=== PATIENT | male | born 1970 | race Caucasian/White ===

== ENCOUNTER → 2017-12-07 09:10 | Outpatient (CLI) | payer BC, SELFPAY ==
[2017-12-07 10:41] LABS: Alanine Aminotransferase 39 U/L (12-78); Albumin Level 4.4 gm/dL (3.4-5.0); Albumin/Globulin Ratio 1.6 (1.1-1.8); Alkaline Phosphatase 58 U/L (46-116); Anion Gap 11.8 mEq/L (5-15); Aspartate Amino Transferase 15 U/L (15-37); Bilirubin,Total 1.2 mg/dL (0.2-1.0); Blood Urea Nitrogen 13 mg/dL (7-18); Calcium 8.9 mg/dL (8.5-10.1); Carbon Dioxide 27 mmol/L (21.0-32.0); Chloride 106 mmol/L (98-107); Chol/HDL Ratio 5.2 (1-3.5); Cholesterol 188 mg/dL (140-200); Creatinine,Serum 1.05 mg/dL (0.70-1.30); Estimated Glomerular Filt Rate 76 ml/min (>60); GFR (African American) 92 ML/MIN (>60); Globulin 2.7 gm/dl (1.3-3.2); Glucose 102 mg/dL (74-106); HDL Cholesterol 36 mg/dL (27-67); LDL Cholesterol 129 mg/dL (0-130); Potassium 3.8 mmoL/L (3.5-5.1); Sodium 141 mmol/L (136-145); Total Protein,Serum 7.1 gm/dL (6.4-8.2); Triglycerides 114 mg/dL (30-200); VLDL Cholesterol 23 mg/dL (0-40)
== END ==
PROVIDERS: PCP Nurse Practitioner Family; Visit Provider Nurse Practitioner Family
DX: Z00.00 Encounter for general adult medical examination without abnormal findings (principal)
CPT/HCPCS: 36415; 80053; 80061

== ENCOUNTER → 2017-12-12 07:51 | Outpatient (CLI) | payer BC, SELFPAY ==
--- NOTE | 2017-12-12 08:03 | CT_ITS ---
CT abdomen pelvis wo con CLINICAL INDICATION: Umbilical pain, periumbilical pain, umbilical hernia ITS.REASON: UMBILICAL HERNIA ORDERING PHYSICIAN: Stephy Sinha PATIENT AGE: 47 years COMPARISON: None TECHNIQUE: Axial images obtained with sagittal and coronal reformats. PROCEDURE: Oral Contrast: Redicat IV Contrast: None . FINDINGS: No acute finding in the lower chest. The liver, gallbladder, spleen, adrenal glands, and pancreas have an unremarkable unenhanced CT appearance. No renal calculi, ureteral calculi, hydronephrosis, or suspicious renal mass. There is a small supra umbilical hernia which contains fat. The hernia orifice measures 2 cm in width. The fat within the hernia shows some infiltration. The hernia is just superior to the umbilicus and does NOT contain bowel. No evidence of appendicitis, diverticulitis, intestinal obstruction, or free air. The pelvis has an unremarkable appearance. No acute bony anomalies. IMPRESSION: Small supraumbilical hernia just superior to the umbilicus and midline containing peritoneal fat shows some increased density. The increased density of the fat is nonspecific and could be related to vascular congestion. Hernia strangulation or incarceration is also a consideration. Please correlate clinically.
== END ==
PROVIDERS: PCP Nurse Practitioner Family; Visit Provider Nurse Practitioner Family
DX: K42.9 Umbilical hernia without obstruction or gangrene (principal)
CPT/HCPCS: 74176

== ENCOUNTER 2017-12-29 09:08 | Emergency (ER) | payer BC, SELFPAY ==
[2017-12-29 09:35] VITALS: BP 144/89; PULSE 114; RESP 20; TEMP 36.9; O2SAT 99; BMI 33.4
[2017-12-29 09:49] LABS: UTC Influenza A Antigen Negative (Negative); UTC Influenza B Antigen Negative (Negative)
--- NOTE | 2017-12-29 09:59 | HMH.EDUTC ---
[facility] [place] Impression: Viral upper respiratory illness, Need for Tdap vaccination Disposition: Home, Self-Care Condition on Discharge: Good Instructions: DI for Viral Upper Respiratory Infection -- Adult, Tetanus, Diphtheria, Pertussis (Tdap) Vaccine Additional Instructions: * No sign of bacterial infection. Likely viral. Virus can take 7-14 days to run their course * Monitor Temp. Follow up if fever develops at this point * Encourage fluids, water, gatorade, powerade, pedialyte if /toddler/child * warm salt water gargles * warm fluids * sore throat lozenges * sleep elevated * humidifier/vaporizer * Avoid decongestants due to your history of significantly elevated blood pressure. Coricidin HBP products are the best with someone with your history if you need over the counter medication. Your vaccine today contained pertussis (whooping cough) as you requested but also know it contains the tetanus vaccine. You might want to make a mental note of this or document it somewhere Referrals: Stephy Sinha APRN [Primary Care Provider] - (IMMEDIATELY for new or worsening symptoms OR no noticeable improvement over the next 48-72 hours. 911 for difficulty breathing or swallowing. ) Time of Disposition: 10:05 Medical Decision Making Vital Signs: 12/29/17 09:35 Temperature 98.5 F Temperature Source Temporal Artery Scan Pulse Rate [Right Brachial] 114 H Respiratory Rate 20 Blood Pressure [Right Arm] 144/89 Blood Pressure Mean [Right Arm] 107 Blood Pressure Source [Right Arm] Automatic Cuff Blood Pressure Position [Right Arm] Sitting 02 Sat by Pulse Oximetry 99 Oxygen Delivery Method Room Air - Lab Data Lab results reviewed: Yes: I reviewed the patient's lab results. Lab Results 12/29/17 09:39: Influenza Type A Ag Negative, Influenza Type B Ag Negative Orders (Tests/Meds): ED MEDICATIONS Discontinued Medications Generic Name Dose Route Start Last Admin Trade Name Freq PRN Reason Stop Dose Admin Tetanus/Reduced Diphtheria/Acell Pertussis 0.5 ml 12/29/17 09:41 12/29/17 09:48 Adacel Tdap 0.5ml Syringe IM 12/29/17 09:42 0.5 ml .ONCE ONE Administration - Ray Inquiry Pt receiving controlled substance: No [facility] [place] - General Stated complaint: congestion Time Seen by Provider: 12/29/17 09:20 Mode of Arrival: Ambulatory Source of Information: Patient Limitations: No Limitations Description of Symptoms (Recalled from Triage Doc. by RN): C/O flu-like symptoms and requests TDAP vaccine HEENT Symptoms (Recalled from RN notes): No Resp Symptoms (Recalled from RN notes): Yes (Flu-like symptoms) Skin Symptoms (Recalled from RN notes): No MS Symptoms (Recalled from RN notes): No Functional Status (Recalled from RN notes): N/A - History of Present Illness Provider Complaint: c/o not feeling well last 2 days but starting to feel better today. Planned to go to work but talked him in to being seen. New grandbaby arriving within the next week and wants to rule out the flu but also needing the pertussis vaccine. Rhinorrhea throughout day and nasal congestion at night. Minimal cough. Scratchy throat. Like from drainage . Hasn't taken or tried anything for symptoms. Recently dx HTN w/ BP 200's/100's at PCP 3 wks ago. Started lisinopril and feeling much better. No known sick contacts. - Related Data Allergies Allergy/AdvReac Type Severity Reaction Status Date / Time No Known Allergies Allergy Verified 12/29/17 09:41 - Worker's Comp Is this a Worker's Comp case?: No [facility] History I have reviewed the patient's past medical history: Yes Medical History: Reports:: Hypertension Denies:: Cancer, Diabetes Mellitus Type 1, Diabetes Mellitus Type 2, MRSA Laterality Cases: Left: Arthroscopy Knee Amputation: No Fractures: No - *Social History Smoking Status: Never smoker Alcohol Intake: never Alcohol Intake Frequency:: holidays/special occasions only Substance Use Type
--- NOTE | 2017-12-29 10:03 | ED_ITS ---
[facility] [place] Clinical Impression: Viral upper respiratory illness, Need for Tdap vaccination Disposition: Home, Self-Care Condition on Discharge: Good Instructions: DI for Viral Upper Respiratory Infection -- Adult, Tetanus, Diphtheria, Pertussis (Tdap) Vaccine Additional Instructions: * No sign of bacterial infection. Likely viral. Virus can take 7-14 days to run their course * Monitor Temp. Follow up if fever develops at this point * Encourage fluids, water, gatorade, powerade, pedialyte if /toddler/ child * warm salt water gargles * warm fluids * sore throat lozenges * sleep elevated * humidifier/vaporizer * Avoid decongestants due to your history of significantly elevated blood pressure. Coricidin HBP products are the best with someone with your history if you need over the counter medication. Your vaccine today contained pertussis (whooping cough) as you requested but also know it contains the tetanus vaccine. You might want to make a mental note of this or document it somewhere Referrals: Stephy Sinha APRN [Primary Care Provider] - (IMMEDIATELY for new or worsening symptoms OR no noticeable improvement over the next 48-72 hours. 911 for difficulty breathing or swallowing. ) Time of Disposition: 10:05 Medical Decision Making Vital Signs: 12/29/17 09:35 Temperature 98.5 F Temperature Source Temporal Artery Scan Pulse Rate [Right Brachial] 114 H Respiratory Rate 20 Blood Pressure [Right Arm] 144/89 Blood Pressure Mean [Right Arm] 107 Blood Pressure Source [Right Arm] Automatic Cuff Blood Pressure Position [Right Arm] Sitting 02 Sat by Pulse Oximetry 99 Oxygen Delivery Method Room Air - Lab Data Lab results reviewed: Yes: I reviewed the patient's lab results. Lab Results 12/29/17 09:39: Influenza Type A Ag Negative, Influenza Type B Ag Negative Orders (Tests/Meds): ED MEDICATIONS Discontinued Medications Generic Name Dose Route Start Last Admin Trade Name Freq PRN Reason Stop Dose Admin Tetanus/Reduced Diphtheria/Acell Pertussis 0.5 ml 12/29/17 09:41 12/29/17 09: 48 Adacel Tdap 0.5ml Syringe IM 12/29/17 09:42 0.5 ml .ONCE ONE Administration - Ray Inquiry Pt receiving controlled substance: No [facility] [place] HPI - General Stated complaint: congestion Time Seen by Provider: 12/29/17 09:20 Mode of Arrival: Ambulatory Source of Information: Patient Limitations: No Limitations Description of Symptoms (Recalled from Triage Doc. by RN): C/O flu-like symptoms and requests TDAP vaccine HEENT Symptoms (Recalled from RN notes): No Resp Symptoms (Recalled from RN notes): Yes (Flu-like symptoms) Skin Symptoms (Recalled from RN notes): No MS Symptoms (Recalled from RN notes): No Functional Status (Recalled from RN notes): N/A - History of Present Illness Provider Complaint: c/o not feeling well last 2 days but starting to feel better today. Planned to go to work but talked him in to being seen. New grandbaby arriving within the next week and wants to rule out the flu but also needing the pertussis vaccine. Rhinorrhea throughout day and nasal congestion at night. Minimal cough. Scratchy throat. Like from drainage . Hasn't taken or tried anything for symptoms. Recently dx HTN w/ BP 200's/100's at PCP 3 wks ago. Started lisinopril and feeling much better. No known sick contacts. - Related Data Allergies Richi
== END 2017-12-29 10:07 | disposition home or self-care (01) ==
PROVIDERS: Emergency Provider Nurse Practitioner Family; PCP Nurse Practitioner Family
DX: J06.9 Acute upper respiratory infection, unspecified (principal); Z23 Encounter for immunization
CPT/HCPCS: 87804; 90471; 90715; 99201

== ENCOUNTER → 2019-08-19 08:38 | Outpatient (CLI) | payer BC, SELFPAY ==
--- NOTE | 2019-08-19 08:41 | XR_ITS ---
PROCEDURE: XR FOOT WT BEARING RT 3V CLINICAL INDICATION: pain COMPARISON: No exams were available for comparison FINDINGS: No fracture or dislocation. No lytic or blastic change. There is normal mineralization. The joint spaces are well-preserved. No significant degenerative/arthritic changes. No erosive changes evident. Other findings:There is minimal lateral angulation of the distal phalanx of the 2nd toe of questionable clinical significance IMPRESSION: No acute findings. Dictated by: Nathan Guerra MD 08/19/2019 14:49 Electronically signed by Nathan Guerra MD in [place] 08/19/2019 14:49
--- NOTE | 2019-08-19 08:41 | XR_ITS ---
PROCEDURE: XR FOOT WT BEARING LT 3V CLINICAL INDICATION: pain COMPARISON: No exams were available for comparison FINDINGS: No fracture or dislocation. No lytic or blastic change. There is normal mineralization. The joint spaces are well-preserved. No significant degenerative/arthritic changes. No erosive changes evident. Other findings:There is minimal lateral angulation of the distal phalanx of the 2nd toe. IMPRESSION: No acute findings. Dictated by: Nathan Guerra MD 08/19/2019 14:49 Electronically signed by Nathan Guerra MD in [place] 08/19/2019 14:51
== END ==
PROVIDERS: PCP Nurse Practitioner Family; Visit Provider Podiatrist
DX: M72.2 Plantar fascial fibromatosis (principal)
CPT/HCPCS: 73630

== ENCOUNTER 2020-12-16 09:52 | Emergency (ER) | payer BC, SELFPAY ==
[2020-12-16 09:53] VITALS: BP 149/91; PULSE 101; RESP 19; TEMP 37.1; O2SAT 98; BMI 33.7
--- NOTE | 2020-12-16 10:14 | HMH.EDUTC ---
[facility] [place] Disposition Clinical Impression: Viral syndrome, Exposure to COVID-19 virus Acute bronchitis Qualifiers: Bronchitis organism: unspecified organism Qualified Code(s): J20.9 - Acute bronchitis, unspecified Disposition: Home, Self-Care Condition on Discharge: Good Instructions: DI for COVID-19 (Suspected or Confirmed ), Preventing the Spread of Coronavirus Discharge Instructions Additional Instructions: Drink plenty of fluids. Take tylenol for pain or fever. Return if you begin to have difficulty breathing. Follow up with your regular doctor. GO TO THE ER FOR ANY WORSENING SYMPTOMS Prescriptions: Azithromycin [Z-Abimael 250mg Tab*] 250 mg PO UD DOSE PK #6 tab Transmission Status: Received by [id number] Referrals: Stephy Sinha APRN [Primary Care Provider] - Time of Disposition: 10:24 Medical Decision Making - Medical Records Medical records reviewed: No: I reviewed the patient's medical records. - Ray Inquiry Pt receiving controlled substance: No Vital Signs: 12/16/20 09:53 12/16/20 10:28 Temperature 98.7 F 98.7 F Temperature Source Oral Oral Pulse Rate 101 H Pulse Rate [Right] 101 H Respiratory Rate 19 19 Blood Pressure 149/91 H Blood Pressure [Right Arm] 149/91 H Blood Pressure Mean [Right Arm] 110 02 Sat by Pulse Oximetry 98 Oxygen Delivery Method Room Air Orders (Tests/Meds): ORDERS Category Date Time Status Covid-19 Nasal PCR Sendout P&C Stat Lab 12/16/20 10:00 Received [facility] [place] HPI - General Stated complaint: Covid test, symptoms Time Seen by Provider: 12/16/20 10:14 Mode of Arrival: Ambulatory Source of Information: Patient Description of Symptoms (Recalled from Triage Doc. by RN): pt request COVID test pt c/o chills,dizzy x 2days HEENT Symptoms (Recalled from RN notes): Yes Resp Symptoms (Recalled from RN notes): No Skin Symptoms (Recalled from RN notes): No MS Symptoms (Recalled from RN notes): No Functional Status (Recalled from RN notes): wnl - History of Present Illness Provider Complaint: He states that for the past 3 days he has had chilling, head ache, body aches, and a worsening productive cough. He denies that he has any shortness of breath or chest pain. - Related Data Home Medications Medication Instructions Recorded Confirmed lisinopril 30 mg tablet PO #90 tab 06/24/19 01/27/20 atorvastatin 20 mg tablet 20 mg PO tab 12/02/19 01/27/20 cetirizine 10 mg tablet mg PO 12/02/19 01/27/20 Previous Rx's Medication Instructions Recorded naproxen 500 mg tablet 500 mg PO BID #60 tab 12/02/19 Azithromycin [Z-Abimael 250mg Tab*] 250 mg PO UD DOSE PK #6 tab 12/16/20 Allergies Allergy/AdvReac Type Severity Reaction Status Date / Time No Known Allergies Allergy Verified 12/16/20 10:08 - Worker's Comp Is this a Worker's Comp case?: No Is this an [facility] Worker's Comp?: No Is this a [place] Worker's Comp?: No H History - Hepatitis A Screen Drug use history?: No High risk sexual behaviors?: No History of sexually transmitted infection?: No Currently employed?: No Childcare worker?: No Do you have indoor plumbing?: Yes Do you have electricity?: Yes Attestation statement:: This patient has been screened for Hepatitis A risk factors. I have reviewed the patient's past medical history: Yes Medical History: Reports:: Hiatal Hernia, Hypertension Denies:: Cancer, Diabetes Mellitus Type 1, Diabetes Mellitus Type 2, MRSA Laterality Cases: Left: Arthroscopy Knee Other Surgeries: Yes: No Previous Surgery Amputation: No Fractures: No - Social History Smoking Status: Light tobacco smoker Alcohol Intake: current Alcohol Intake Frequency:: holidays/special occasions only Substance Use Type: denies use Occupational Status: employed Housing: house Household Members: family Family Hx:: Hypertension, Diabetes ROS Obtained: Yes All systems reviewed & no additional complaints - Constitutional Constitutional: Reports system re
[2020-12-16 10:28] VITALS: BP 149/91; PULSE 101; RESP 19; TEMP 37.1; O2SAT 98
[2020-12-17 10:07] LABS: Covid-19 Nasal PCR Sendout P&C POSITIVE
--- NOTE | 2020-12-17 10:19 | PC.NURSE ---
patient informed of positive covid results
== END 2020-12-16 10:29 | disposition home or self-care (01) ==
PROVIDERS: Emergency Provider Nurse Practitioner Family; PCP Nurse Practitioner Family
DX: U07.1 COVID-19 (principal); B34.9 Viral infection, unspecified; J20.9 Acute bronchitis, unspecified; I10 Essential (primary) hypertension; F17.210 Nicotine dependence, cigarettes, uncomplicated
CPT/HCPCS: 99202; G0463; U0004

== ENCOUNTER 2021-08-01 11:49 | Emergency (ER) | payer BC, SELFPAY ==
[2021-08-01 12:00] VITALS: BP 157/91; PULSE 89; RESP 18; TEMP 37.1; O2SAT 99; BMI 33.7
[2021-08-01 12:26] VITALS: BP 157/91; PULSE 89; RESP 18; TEMP 37.1; O2SAT 99
--- NOTE | 2021-08-01 12:27 | HMH.EDUTC ---
[facility] [place] [facility] [place] Clinical Impression: Exposure to COVID-19 virus Disposition: Home, Self-Care Condition on Discharge: Good Instructions: COVID-19 Viral Test Additional Instructions: covid swab was sent to lab, call later today for results. self isolate until test results are known to be negative Referrals: Stephy Sinha APRN [Primary Care Provider] - Time of Disposition: 12:29 Medical Decision Making - Ray Inquiry Pt receiving controlled substance: No Vital Signs: 08/01/21 12:00 08/01/21 12:26 Temperature 98.8 F 98.8 F Temperature Source Oral Pulse Rate 89 Pulse Rate [Right Brachial] 89 Respiratory Rate 18 18 Blood Pressure 157/91 H Blood Pressure [Right Arm] 157/91 H Blood Pressure Mean [Right Arm] 113 Blood Pressure Source [Right Arm] Automatic Cuff Blood Pressure Position [Right Arm] Sitting 02 Sat by Pulse Oximetry 99 Oxygen Delivery Method Room Air Orders (Tests/Meds): ORDERS Category Date Time Status Covid-19 Nasal PCR ([facility]) Routine Lab 08/01/21 12:10 Received [facility] [place] [facility] [place]PI - General Chief complaint: Urgent [facility] Stated complaint: covid test Time Seen by Provider: 08/01/21 12:27 Mode of Arrival: Ambulatory Source of Information: Patient Limitations: No Limitations Description of Symptoms (Recalled from Triage Doc. by RN): COVID TEST D/T EXPOSURE. DENIES SYMPTOMS HEENT Symptoms (Recalled from RN notes): No Resp Symptoms (Recalled from RN notes): No Skin Symptoms (Recalled from RN notes): No MS Symptoms (Recalled from RN notes): No Functional Status (Recalled from RN notes): WNL - History of Present Illness Provider Complaint: 51 yr old male presents for covid test, has been exposed but no syptoms - Related Data Home Medications Medication Instructions Recorded Confirmed lisinopril 30 mg tablet PO #90 tab 06/24/19 01/27/20 atorvastatin 20 mg tablet 20 mg PO tab 12/02/19 01/27/20 cetirizine 10 mg tablet mg PO 12/02/19 01/27/20 Previous Rx's Medication Instructions Recorded naproxen 500 mg tablet 500 mg PO BID #60 tab 12/02/19 Azithromycin [Z-Abimael 250mg Tab*] 250 mg PO UD DOSE PK #6 tab 12/16/20 Allergies Allergy/AdvReac Type Severity Reaction Status Date / Time No Known Allergies Allergy Verified 12/16/20 10:08 - Worker's Comp Is this a Worker's Comp case?: No [facility] History - Hepatitis A Screen Drug use history?: No High risk sexual behaviors?: No History of sexually transmitted infection?: No Currently employed?: No Childcare worker?: No Do you have indoor plumbing?: Yes Do you have electricity?: Yes Attestation statement:: This patient has been screened for Hepatitis A risk factors. I have reviewed the patient's past medical history: Yes Medical History: Reports:: Hiatal Hernia, Hypertension Denies:: Cancer, Diabetes Mellitus Type 1, Diabetes Mellitus Type 2, MRSA Laterality Cases: Left: Arthroscopy Knee Other Surgeries: Yes: No Previous Surgery Amputation: No Fractures: No - Social History Smoking Status: Light tobacco smoker Alcohol Intake: current Alcohol Intake Frequency:: holidays/special occasions only Substance Use Type: denies use Occupational Status: employed Housing: house Household Members: family Family Hx:: Hypertension, Diabetes ROS Obtained: Yes Systems reviewed as appropriate & no additional complaints - Constitutional Constitutional: Reports system reviewed and no additional complaints, except as docu, Denies chills - Eyes Eyes: Reports system reviewed and no additional complaints, except as docu, Denies blurry vision - ENT Ears, Nose, Mouth, and Throat: Reports system reviewed and no additional complaints, except as docu, Denies sore throat - Cardiovascular Cardiovascular: Reports system reviewed and no additional complaints, except as docu, Denies chest pain - Respiratory Respiratory: Reports system reviewed and no additional complaints, except as docu, Denies shortness of breath - G
== END 2021-08-01 12:34 | disposition home or self-care (01) ==
PROVIDERS: Emergency Provider Nurse Practitioner Family; PCP Nurse Practitioner Family
DX: Z20.822 Contact with and (suspected) exposure to COVID-19 (principal)
CPT/HCPCS: 99202; G0463; U0003

== ENCOUNTER → 2021-11-21 12:32 | Outpatient (CLI) | payer BC, SELFPAY | PROVIDERS: PCP Nurse Practitioner Family; Visit Provider Nurse Practitioner Family | DX: Z20.822 Contact with and (suspected) exposure to COVID-19 (principal) | CPT/HCPCS: C9803; U0003; U0005 ==

== ENCOUNTER → 2022-08-23 08:50 | Outpatient (CLI) | payer BC, SELFPAY ==
--- NOTE | 2022-08-23 08:59 | ECG_ITS ---
APPROVED REPORT Exam: Resting ECG HR:85 bpm ECG Measurements Heart Rate 85 AXES MA 177 P 26 QRSd 94 QRS 70 QT 366 T 11 QTc 408 Conclusion SINUS RHYTHM WITH SINUS ARRHYTHMIA LOW QRS VOLTAGE IN PRECORDIAL LEADS [QRS DEFLECTION < 1.0 mV IN CHEST LEADS] BORDERLINE ECG UNCONFIRMED REPORT Electronically signed by : Elie Vail MD 08/25/2022 16:00:35
[2022-08-23 09:05] LABS: Microscopic, Urine URINE MICROSCOPIC (MICROSCOPIC)
[2022-08-23 09:34] LABS: Appearance,Urine CLEAR (Clear); Basophils # 0.1 K/mm3 (0-0.2); Basophils % 2.1 % (0.1-2.0); Bilirubin,Urine Negative (Negative); Blood, Urine Negative (Negative); Color,Urine YELLOW (Yellow); Eosinophils # 0.2 K/mm3 (0.0-0.4); Eosinophils % 3.5 % (0.1-12.0); Glucose,Urine (UA) Negative (Negative); Hematocrit 39.5 % (42.0-52.0); Hemoglobin 15.3 g/dL (14.1-18.0); Ketones,Urine Negative (Negative); Leukocyte Esterase,Urine Negative (Negative); Lymphocytes # 1.6 K/mm3 (0.7-4.5); Mean Corpuscular HGB Conc 38.7 g/dL (31.8-35.4); Mean Corpuscular Hemoglobin 36.6 pg (27.0-31.2); Mean Corpuscular Volume 94.5 fl (80-94); Mean Platelet Volume 8.4 fl (7.4-10.4); Monocytes # 0.5 K/mm3 (0.1-1.0); Monocytes % 8.7 % (1.7-9.3); Neutrophils # 3.5 K/mm3 (1.8-7.8); Neutrophils % 58.7 % (37.0-80.0); Nitrate,Urine Negative (Negative); PH,Urine 5.5 (5.0-8.5); Platelet Count 175 K/mm3 (142-424); Protein,Urine Negative (Negative); Red Blood Count 4.18 M/mm3 (4.60-6.20); Red Cell Distribution Width 13.5 % (11.5-17.5); Specific Gravity, Urine >= 1.030 (1.005-1.030); Urobilinogen,Urine 0.2 EU/dl (0.2)
[2022-08-23 09:50] LABS: Bacteria,Urine Trace /lpf; Chloride 103 mmol/L (98-107); Potassium 4.2 mmoL/L (3.5-5.1); Sodium 142 mmol/L (136-145); Squamous Epithelial Cell,Urine Occasional #/hpf (0-5); WBC,Urine Occasional #/hpf (0-3)
[2022-08-23 09:53] LABS: Anion Gap 17.2 mEq/L (5-15); Blood Urea Nitrogen 16 mg/dl (9-20); Carbon Dioxide 26 mmol/L (22.0-30.0); Estimated Glomerular Filt Rate 70 ml/min (>60); GFR (African American) 85 ML/MIN (>60); Glucose 104 mg/dl (74-100)
== END ==
PROVIDERS: PCP Nurse Practitioner Family; Visit Provider Surgery
DX: Z01.812 Encounter for preprocedural laboratory examination (principal); Z20.822 Contact with and (suspected) exposure to COVID-19; K46.9 Unspecified abdominal hernia without obstruction or gangrene
CPT/HCPCS: 36415; 80048; 81001; 85025; 93005; C9803; U0003; U0005

== ENCOUNTER 2022-08-25 06:05 | Day surgery (SDC) | payer BC, SELFPAY ==
[2022-08-23 14:48] VITALS: BMI 33.2
[2022-08-25] VITALS (10 sets, daily range): BP systolic 109–153; BP diastolic 63–83; PULSE 61–87; RESP 16–20; TEMP 36.1–43; O2SAT 93–100
--- NOTE | 2022-08-25 07:31 | P.PN_ITS ---
PFSH PFS Medical History Allergy Arthritis History of gastroesophageal reflux (GERD) Hyperlipidemia Hypertension Vertigo Surgical History S/P left knee arthroscopy Family History Other Family history of acute congestive heart failure Family history of cancer Family history of diabetes mellitus type II Family history of hypertension Social History Smoking Status: Current every day smoker tobacco type: smokeless tobacco alcohol intake: current counseling provided: provider counseling substance use type: denies use current occupational status: employed Travel in the last 8 weeks: Inside the [place] household members: family housing: house [facility] Anesthesia Checklist Patient Identification Patient Identification: Arm Band Structural Data Admitted From: Home Planned Operative Procedure/s: Open Umbilical Hernia Repair Consent for Planned Operative Procedure(s) Verified: Yes Verified Documents: Surgical Consent and History and Physical NPO Status Verified Time NPO: 00:00 Additional verifications Anesthesia Reactions: No Hx Blood Transfusions: No Blood Transfusion Reaction: No Airway Assessment C-Spine Mobility Assessed: Yes TMJ Mobility Assessed: Yes Dentition: Good Dentition Neurological Assessment Level of Consciousness: Awake and Alert Anesthesia Plan Anesthesia Risk discussed: Yes Anesthesia Plan: Verified ASA Class: II Anesthesia Type: General
--- NOTE | 2022-08-25 08:15 | EXP.OP.NOTE ---
Date of procedure: 08/25/22 Pre-op Diagnosis:: Umbilical hernia with incarcerated preperitoneal fat/omentum Post-op Diagnosis:: Same Procedure performed:: Open umbilical hernia repair with 4.3 cm Ventralex mesh Surgeon:: Zack Liz MD LOGISTICS ENGINEERING MANAGER:: Ameya Timmons Anesthesia: GETA Estimated blood loss (mL): 10 Operative findings:: 1.5 cm defect 4.3 cm Ventralex mesh secured with 0 Ethibond Primary repair overlying Ventralex mesh completed with 0 Ethibond Operative note:: After informed consent was obtained the patient was taken to the operating room and placed in the supine position. General anesthesia was induced and his abdomen was prepped and draped in a sterile fashion. After infiltration local anesthetic a curvilinear infraumbilical incision was made. The subcutaneous tissue was dissected with a combination of sharp dissection, blunt dissection, and electrocautery. The umbilical stump was carefully elevated. A 1.5 cm defect was encountered with incarcerated preperitoneal fat and omentum noted. The incarcerated contents were maneuvered back into the abdominal cavity as the surrounding tissue was dissected with Metzenbaum scissors and electrocautery. A 4.3 Ventralex mesh was then secured in the defect utilizing 0 Ethibond. A primary repair overlying the mesh was then completed with 0 Ethibond. The umbilical stump was reapproximated with interrupted Vicryl. Skin was then closed with interrupted 4-0 Monocryl. Dressings were applied and the patient was transferred to recovery in stable condition after extubation. Condition: stable Disposition: PACU Specimens:: None Complications:: No immediate
--- NOTE | 2022-08-25 08:20 | P.PNANES_ITS ---
[facility] Anesthesia Record Part I Anesthesia Record I Intake, IV Amount: 1,100 Estimated blood loss (mL): 5 Urine output (mL): 0 Blood Products used (#): none Blood Pressure: 112/68 SaO2: 93 Pulse Rate: 87 Respiratory Rate: 16 Temperature: 98.3 F Patient is:: Drowsy and Stable Stable to PACU at:: 08:20
--- NOTE | 2022-08-25 08:50 | PC.NURSE ---
0848-detailed report called to MAGDIEL Jimenez [id number]-pt transported to post op via stretcher w/lita rails up and left in care of MAGDIEL Jimenez with bed locked in lowest position, vss, pt stable
--- NOTE | 2022-08-26 14:38 | P.PNANES_ITS ---
[facility] Anesthesia Record Part II Anesthesia Record Part II Discharge Time: 08:50 Destination: Surgical Day Care (OP Surgery) PACU nurse assessment reviewed?: Yes Patient Condition:: Good Anesthesia Complications:: None Swallowing reflex intact?: Yes Cyanosis?: No Blood Pressure: 109/77 Pulse Rate: 63 Temperature: 97.4 F Mental Status: Alert & Oriented Pain level:: 0 Nausea and/or vomitting:: None Intake, IV Amount: 0
[2022-08-26 14:39] VITALS: BP 109/77; PULSE 63; TEMP 36.3
== END 2022-08-25 09:21 | disposition home or self-care (01) ==
PROVIDERS: PCP Nurse Practitioner Family; Visit Provider Surgery
PROC: (CPT 49587; principal; 2022-08-25 07:30)
DX: K42.0 Umbilical hernia with obstruction, without gangrene (principal); F17.220 Nicotine dependence, chewing tobacco, uncomplicated; Z79.899 Other long term (current) drug therapy
CPT/HCPCS: 49587; 96374; C1781; J0330; J2405; J2710

== ENCOUNTER 2024-08-19 12:26 | Day surgery (SDC) | payer BC, SELFPAY ==
[2024-08-13 15:19] VITALS: BMI 33.0
[2024-08-19] MEDS: LACTATED RINGERS 1000ML 1,000 ML 100 ML IV (12:36)
[2024-08-19 12:41] VITALS: BP 139/84; PULSE 80; RESP 18; TEMP 36.1; O2SAT 98
--- NOTE | 2024-08-19 13:04 | EXP.ANES.CKL ---
[facility] Disclaimer: The information contained in this section may have been updated after the patient was seen, as this information can be updated by other users. Medical History Allergy Arthritis History of gastroesophageal reflux (GERD) Hyperlipidemia Hypertension Vertigo Surgical History H/O umbilical hernia repair S/P left knee arthroscopy Family History Other Family history of acute congestive heart failure Family history of cancer Family history of diabetes mellitus type II Family history of hypertension Social History Smoking Status: Former smoker tobacco type: smokeless tobacco alcohol intake: current alcohol intake frequency: holidays/special occasions only counseling provided: provider counseling substance use type: denies use current occupational status: employed Travel in the last 8 weeks: Inside the [facility] adopted: No caregiver/support person: No foster care: No household members: family housing: house marital status: number of children: 2 number of grandchildren: 4 service: No senior care: No [facility] Anesthesia Checklist Patient Identification Patient Identification: Arm Band Structural Data Admitted From: Home Planned Operative Procedure/s: Colonoscopy Consent for Planned Operative Procedure(s) Verified: Yes Verified Documents: Surgical Consent and History and Physical NPO Status Verified Time NPO: 00:00 Additional verifications Anesthesia Reactions: No Hx Blood Transfusions: No Blood Transfusion Reaction: No Airway Assessment Mallampati Score:: Class II C-Spine Mobility Assessed: Yes TMJ Mobility Assessed: Yes Dentition: Good Dentition Neurological Assessment Level of Consciousness: Awake, Alert and Appropriate Anesthesia Plan Anesthesia Risk discussed: Yes Anesthesia Plan: Verified ASA Class: II Anesthesia Type: MAC
[2024-08-19 14:03] VITALS: O2SAT 98
--- NOTE | 2024-08-19 14:06 | EXP.HP ---
History of Present Illness *Admission Date: 08/19/24 *Reason for visit:: Screening *History of present illness: 54-year-old gentleman who is here for initial screening colonoscopy. He does get some frequent hemorrhoidal bleeding. [facility] Disclaimer: The information contained in this section may have been updated after the patient was seen, as this information can be updated by other users. Medical History Allergy Arthritis History of gastroesophageal reflux (GERD) Hyperlipidemia Hypertension Vertigo Surgical History H/O umbilical hernia repair S/P left knee arthroscopy Family History Other Family history of acute congestive heart failure Family history of cancer Family history of diabetes mellitus type II Family history of hypertension Social History Smoking Status: Former smoker tobacco type: smokeless tobacco alcohol intake: current alcohol intake frequency: holidays/special occasions only counseling provided: provider counseling substance use type: denies use current occupational status: employed Travel in the last 8 weeks: Inside the [place] adopted: No caregiver/support person: No foster care: No household members: family housing: house marital status: number of children: 2 number of grandchildren: 4 service: No snf: No Review of Systems Review of Systems Review of systems (narrative): Negative *Cardiovascular Comments: Negative *Gastrointestinal Comments: Negative *Genitourinary Comments: Negative *Musculoskeletal Comments: Negative *Neurologic Comments: Negative Meds Home Medications and Allergies Home Medications ?Medication ?Instructions ?Recorded ?Confirmed ?Type lisinopril 30 mg tablet 40 mg PO DAILY High blood pressure 06/24/19 08/19/24 History #90 tabs fluticasone propionate 50 1 spray intranasal DAILY Allergy 07/13/22 08/19/24 History mcg/actuation nasal symptoms spray,suspension rosuvastatin 10 mg tablet 10 mg PO DAILY Cholesterol 07/13/22 08/19/24 History amlodipine 10 mg tablet 10 mg PO DAILY 08/13/24 08/19/24 History New Prescriptions to Start Prescriptions: Allergies Allergy/AdvReac Type Severity Reaction Status Date / Time No Known Allergies Allergy Verified 09/07/22 09:16 Exam Data for Last 24 hours Vital signs and Labs for Last 24 Hours: Temp Pulse Resp BP Pulse Ox O2 Del Method 97 F L 80 18 139/84 98 Room Air 08/19/24 12:41 08/19/24 12:41 08/19/24 12:41 08/19/24 12:41 08/19/24 12:41 08/19/24 12:41 *Routine HEENT Exam Head: Present normocephalic Eye: Present EOMI and PERRL ENT: Present mucous membranes moist *Routine Neck Exam Neck: Present supple *Routine Respiratory Exam Respiratory: Present CTA bilaterally *Routine Cardiovascular Exam Cardiovascular: Present RRR *Routine Abdominal Exam Abdominal: Present soft and normoactive bowel sounds; Absent tenderness *Routine Rectal Exam Rectal:: deferred *Routine Genitalia Exam Genitalia:: deferred *Routine Extremities Exam Extremities: Absent cyanosis, clubbing or edema *Routine Skin Exam Skin: Present warm; Absent rash *Routine Neurological Exam Neurological: Present alert and oriented X3 Assessment and Plan *Assessment and plan (1) Screening for colon cancer: Status: Acute Category: Medical Code(s): Z12.11 - Encounter for screening for malignant neoplasm of colon Plan Proceed with screening colonoscopy
--- NOTE | 2024-08-19 14:29 | P.PCN_ITS ---
[facility] Procedure Note Date: 08/19/24 Time: 14:29 Procedure Note:: Colonoscopy Procedure Report: Colonoscopy with cold snare polypectomy and hemorrhoid band ligation Endoscopist: Tashi Rendon II, MD Referring physician: MERY Milan Date of Procedure: August 19, 2024 Equipment: Olympus 190 variable stiffness pediatric colonoscope Sedation: MAC sedation Indication: Mr. Feliciano is a 54-year-old gentleman who is here for initial screening colonoscopy. The patient does report fairly frequent hemorrhoidal bleeding and hemorrhoidal prolapse. This is not unexplained. The patient reports no abdominal pain, weight loss, change in his bowel habits or family history of colon cancer. Procedure: Prior to the procedure, a history and physical exam was performed, and patient's medications and allergies were reviewed. The risks, benefits and alternatives of the sedation and procedure were discussed with the patient. All questions were answered and informed consent was obtained. The patient was brought to the procedure room. Patient identification and proposed procedure were verified by the physician and the nurse. The patient was placed in a left lateral decubitus position and the scope was passed under direct vision. Throughout the procedure, the patient's blood pressure, pulse, and oxygen saturations were monitored continuously. The colonoscopy was accomplished without difficulty. The patient tolerated the procedure well. Findings: On digital rectal examination there was normal rectal tone. There were no external hemorrhoids. There were prolapsing internal hemorrhoids. The prostate was 2+, smooth, soft, symmetric without nodules. The colonoscope was introduced through the anal canal to the rectum and advanced to the cecum. The ileocecal valve and appendiceal orifice were identified. The scope was advanced a short distance into the ileum which appeared grossly normal. The scope was then withdrawn into the colon. There were 4 colon polyps identified in the transverse x 2 (4 and 5 mm), sigmoid x 1 (5 mm) and rectum x 1 (4 mm). These ranged in size from 4 to 5 mm and were all removed via cold snare polypectomy. The remaining cecum, ascending, transverse, descending, sigmoid and rectum were grossly normal. There were a few diverticuli in the distal descending and sigmoid colon. There were no other mucosal abnormalities identified. Upon retroflexion within the rectum there were grade 2-3 internal hemorrhoids.The these were banded using 3 bands with excellent ligation effect. The preparation was excellent throughout with Commiskey Preparation Score of 9. The cecal time was 12 minutes. Impression: 1. Diminutive colonic polyps x 4 2. Mild left-sided diverticulosis 3. Grade 2-3 internal hemorrhoids status post band ligation x 3 Plan: I will follow up the polyp pathology and recommend repeat colonoscopy again in 5 years based upon the polyp histology. I would encourage fiber supplementation on a long-term daily maintenance basis.
[2024-08-19 14:41] VITALS: BP 99/68; PULSE 85; RESP 18; TEMP 36.7; O2SAT 94
[2024-08-19 14:56] VITALS: BP 107/72; PULSE 76; RESP 18; O2SAT 95
[2024-08-19 15:01] VITALS: BP 116/49; PULSE 55; RESP 18; O2SAT 94
[2024-08-19 15:03] VITALS: BP 116/49; PULSE 55; RESP 18; O2SAT 94
== END 2024-08-19 15:18 | disposition home or self-care (01) ==
PROVIDERS: PCP Nurse Practitioner Family; Visit Provider Internal Medicine Gastroenterology
PROC: (CPT 45385; principal; 2024-08-19 13:30)
DX: Z12.11 Encounter for screening for malignant neoplasm of colon (principal); D12.5 Benign neoplasm of sigmoid colon; D12.3 Benign neoplasm of transverse colon; K62.1 Rectal polyp; K57.30 Diverticulosis of large intestine without perforation or abscess without bleeding; K64.2 Third degree hemorrhoids
CPT/HCPCS: 45385; 46221; 99221; C1889; J2704; J7120

== ENCOUNTER 2024-12-25 09:19 | Outpatient (CLI) | payer BC, SELFPAY ==
--- NOTE | 2024-12-25 09:25 | XR_ITS ---
FINAL REPORT CLINICAL HISTORY: ACUTE PAIN RT KNEE COMPARISON: None FINDINGS: RIGHT KNEE Three views demonstrate no acute fracture or dislocation. The medial and lateral joint spaces are preserved. No acute soft tissue abnormality is seen. IMPRESSION: No acute bony abnormality. Reviewed, Interpreted and Dictated by Joshua Yusuf MD Transcribed by Valerie Stephens Authenticated and [facility]
== END 2024-12-25 23:59 | disposition home or self-care (01) ==
LOC: RAD 09:21
PROVIDERS: PCP Nurse Practitioner Family; Visit Provider Internal Medicine Adolescent Medicine
DX: M25.561 Pain in right knee (principal)
CPT/HCPCS: 73562

== ENCOUNTER 2025-02-05 07:25 | Outpatient (CLI) | payer BC, SELFPAY ==
--- NOTE | 2025-02-05 07:27 | MR_ITS ---
FINAL REPORT CLINICAL HISTORY: PAIN IN RIGHT KNEE. MEDIAL SIDED PAIN. FINDINGS: Multi planar MR imaging was performed of the right knee. The anterior and posterior cruciate ligaments are intact. The quadriceps and patellar tendons are intact. There is a full-thickness tear of the posterior horn of the medial meniscus extending to the meniscal margin best seen on images 1920 of series 4 and coronal images 19 and 20 of series 8. The medial and lateral collateral ligaments appear intact. The medial and lateral retinacula appear intact. There is no evidence of bone marrow edema or osteochondral defect. No evidence of soft tissue inflammatory reaction. IMPRESSION: Full-thickness tear of the posterior horn of the medial meniscus. Reviewed, Interpreted and Dictated by Joshua Yusuf MD Transcribed by Jailene Estrada Authenticated and [facility]
--- NOTE | 2025-02-05 07:32 | XR_ITS ---
FINAL REPORT CLINICAL HISTORY: R/O METAL FOREIGN BODY FOR MRI. PRIOR HX METAL IN BOTH EYES. COMPARISON: None FINDINGS: ORBITS Look up and look down views were obtained. No fracture is identified. There is mild mucoperiosteal thickening in the right maxillary consistent with chronic sinusitis. No foreign body is identified. Dental implants are noted. IMPRESSION: No evidence of foreign body. Reviewed, Interpreted and Dictated by Joshua Yusuf MD Transcribed by Valerie Stephens Authenticated and . [facility]
== END 2025-02-05 23:59 | disposition home or self-care (01) ==
LOC: RAD 07:26
PROVIDERS: PCP Nurse Practitioner Family; Visit Provider Nurse Practitioner Family
DX: M25.561 Pain in right knee (principal); G89.29 Other chronic pain
CPT/HCPCS: 70200; 73721

== ENCOUNTER 2025-03-12 07:46 | Outpatient (CLI) | payer BC, SELFPAY ==
--- NOTE | 2025-03-12 07:49 | US_ITS ---
FINAL REPORT TECHNIQUE: Sonographic images of the right upper quadrant were obtained. CLINICAL HISTORY: ELEVATED LIVER ENZYMES COMPARISON: None FINDINGS: PANCREAS: The head of the pancreas is unremarkable. The tail is obscured. LIVER: Homogeneous. No focal hepatic lesion. The portal vein is patent with normal directional flow. GALLBLADDER: No gallstones. No gallbladder wall thickening or pericholecystic fluid. COMMON DUCT: 4 mm. Normal for age. RIGHT KIDNEY: The right kidney measures 12.6 cm. There is no hydronephrosis, mass, or stone. FREE FLUID: None. IMPRESSION: Unremarkable ultrasound of the right upper quadrant. Reviewed, Interpreted and Dictated by Jocelyne Pemberton MD Transcribed by Valerie Stephens Authenticated and [facility]
== END 2025-03-12 23:59 | disposition home or self-care (01) ==
LOC: RAD 07:48
PROVIDERS: PCP Internal Medicine Adolescent Medicine; Visit Provider Internal Medicine Adolescent Medicine
DX: R74.8 Abnormal levels of other serum enzymes (principal)
CPT/HCPCS: 76705